=== PATIENT | female | born 2000 | race Caucasian/White ===

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

== ENCOUNTER 2022-05-08 15:13 | Emergency (ER) | payer OTHER ==
[~2022-05-08] VITALS: Ht 157.5 cm; Wt 61.2 kg
[~2022-05-08 15:13] MED LIST changes: +MAG-27 PO
--- NOTE | 2022-05-08 15:36 | NUR ---
COVID, FLU, STREP SWABS DONE.
[2022-05-08 15:37] VITALS: BP 110/64
[2022-05-08] MEDS ORDERED: IBUP-1842 PO (17:32)
[2022-05-08] MEDS ORDERED: PHEN177S23 PO (17:32)
[2022-05-08] MEDS ORDERED: BPM/118S31 PO (17:32)
--- NOTE | 2022-05-08 17:35 | NUR ---
Patient discharged with v/s stable. Written and verbal after care instructions given. Patient alert, oriented and verbalized understanding of instructions. Ambulatory with steady gait. All questions addressed prior to discharge. ID band removed. Patient advised to follow up with PMD. Rx of Ibuprofen, Bromfed and Chloraseptic given. Opportunity to ask questions provided and answered. discharged by KENIA Harrington
--- NOTE | 2022-05-08 17:36 | NUR ---
The patient's care was reviewed and supervised by Ngoc Raya, RN, RN.
== END 2022-05-08 17:35 | disposition home or self-care (01) ==
LOC: MED 15:13
DX: J06.9 Acute upper respiratory infection, unspecified (principal); Z20.822 Contact with and (suspected) exposure to COVID-19; Z79.899 Other long term (current) drug therapy; Z79.1 Long term (current) use of non-steroidal anti-inflammatories (NSAID)
CPT/HCPCS: 87081; 99283

== ENCOUNTER 2023-01-04 19:53 | Emergency (ER) | payer OTHER ==
[~2023-01-04] VITALS: Ht 157.5 cm; Wt 68.0 kg
[~2023-01-04 19:53] MED LIST changes: +BROM118S70 PO; +IBUP-1842 PO; +PHEN177S23 PO
[2023-01-04 20:15] VITALS: BP 132/87; PULSE 120; RESP 16; TEMP 98.4; O2SAT 100
[2023-01-04] MEDS ORDERED: NACL 0.9% 1,000 ML IV ONE (20:45)
[2023-01-04] MEDS ORDERED: ALUMINUM HYD/MAG/SIMETHICONE 30 ML UDC PO ONE (20:45)
[2023-01-04] MEDS ORDERED: FAMOTIDINE 20 MG/2 ML VIAL IVP ONE (20:45)
[2023-01-04] MEDS ORDERED: ONDANSETRON 4 MG/2 ML VIAL IVP ONE (20:45)
[2023-01-04 21:05] LABS: BASOPHILS # (AUTO) 0.1 K/uL (0.00-0.22); BASOPHILS % (AUTO) 0.5 % (0.0-2.0); EOSINOPHILS # (AUTO) 0.1 K/uL (0-0.4); EOSINOPHILS % (AUTO) 1.2 % (0.0-4.0); HEMATOCRIT 39.1 % (36-48); HEMOGLOBIN 13.4 g/dL (12.0-16.0); LYMPHOCYTES # (AUTO) 2.8 K/uL (2.5-16.5); LYMPHOCYTES % (AUTO) 23.7 % (20.5-51.1); MEAN CORPUSCULAR HEMOGLOBIN 29 pg (27-31); MEAN CORPUSCULAR HGB CONC 34 g/dL (33-37); MEAN CORPUSCULAR VOLUME 85.2 fL (80-94); MONOCYTES # (AUTO) 0.8 K/uL (0.8-1.0); MONOCYTES % (AUTO) 6.6 % (1.7-9.3); NEUTROPHILS # (AUTO) 7.9 K/uL (1.8-7.7); PLATELET COUNT (AUTO) 327 K/uL (140-450); RED BLOOD CELL COUNT(AUTO) 4.59 MIL/uL (4.20-5.40); RED CELL DISTRIBUTION WIDTH 12.8 % (11.6-13.7); WHITE BLOOD COUNT (AUTO) 11.7 K/uL (4.5-11.0)
[2023-01-04 21:18] LABS: APPEARANCE,URINE CLEAR (CLEAR); BILIRUBIN,URINE NEGATIVE (NEGATIVE); BLOOD, URINE NEGATIVE (NEGATIVE); COLOR,URINE YELLOW (YELLOW); LEUKOCYTE ESTERASE ,URINE 1+ (NEGATIVE); NITRITE, URINE NEGATIVE (NEGATIVE); PROTEIN,URINE NEGATIVE (NEGATIVE); UGLUCOSE NEGATIVE (NEGATIVE); UROBILINOGEN,URINE 0.2 EU/dL (0.2 - 1)
[2023-01-04 21:28] LABS: BACTERIA,URINE FEW /HPF (None Seen); RBC,URINE 0-5 /HPF (0-5); SQUAMOUS EPITHELIAL CELL,UR 4-10 (MOD) /LPF (0-3 (FEW))
[2023-01-04 21:29] LABS: ALBUMIN 3.9 g/dL (3.4-5.0); ANION GAP 11.4 (8-16); CALCIUM 8.5 mg/dL (8.5-10.1); CARBON DIOXIDE 27.1 mmol/L (21-32); CREATININE 0.8 mg/dL (0.6-1.3); POTASSIUM 3.5 mmol/L (3.5-5.1); TOTAL BILIRUBIN 0.4 mg/dL (0.0-1.0); TOTAL PROTEIN, SERUM 7.6 g/dL (6.4-8.2)
[2023-01-04] MEDS ORDERED: CEPH-588 PO (21:54)
[2023-01-04] MEDS ORDERED: FAMO-92 PO (21:54)
[2023-01-04 22:00] VITALS: BP 132/87; PULSE 120; RESP 16; TEMP 98.4; O2SAT 100
== END 2023-01-04 22:00 | disposition home or self-care (01) ==
LOC: MED 19:53
DX: N39.0 Urinary tract infection, site not specified (principal); K21.9 Gastro-esophageal reflux disease without esophagitis; Z79.899 Other long term (current) drug therapy
CPT/HCPCS: 36415; 80053; 81001; 81025; 83605; 83690; 85025; 87086; 96361; 96374; 96375; 99284; J2405; J3490; J7030

== ENCOUNTER 2023-01-21 20:43 | Emergency (ER) | payer OTHER ==
[~2023-01-21] VITALS: Ht 157.5 cm; Wt 63.5 kg
[~2023-01-21 20:43] MED LIST changes: +CEPH-588 PO
[2023-01-21 21:05] VITALS: BP 147/79; PULSE 100; RESP 19; TEMP 98.1; O2SAT 100
[2023-01-21 21:38] LABS: APPEARANCE,URINE CLEAR (CLEAR); BILIRUBIN,URINE NEGATIVE (NEGATIVE); BLOOD, URINE TRACE-I (NEGATIVE); COLOR,URINE YELLOW (YELLOW); LEUKOCYTE ESTERASE ,URINE NEGATIVE (NEGATIVE); NITRITE, URINE NEGATIVE (NEGATIVE); PH,URINE 6.5 (5.0-9.0); PROTEIN,URINE NEGATIVE (NEGATIVE); UGLUCOSE NEGATIVE (NEGATIVE); UROBILINOGEN,URINE 0.2 EU/dL (0.2 - 1)
[2023-01-21 21:45] LABS: BACTERIA,URINE None Seen /HPF (None Seen); MUCUS,URINE 1+ /LPF (None Seen); RBC,URINE 0 /HPF (0-5); SQUAMOUS EPITHELIAL CELL,UR 4-10 (MOD) /LPF (0-3 (FEW)); TRICHOMONAS,URINE None Seen /HPF (None Seen); WBC,URINE 0 /HPF (0-5); YEAST,URINE None Seen /HPF (None Seen)
[2023-01-21 21:54] LABS: BASOPHILS % (AUTO) 0.2 % (0.0-2.0); EOSINOPHILS # (AUTO) 0.1 K/uL (0-0.4); EOSINOPHILS % (AUTO) 1.3 % (0.0-4.0); HEMATOCRIT 36.8 % (36-48); HEMOGLOBIN 12.8 g/dL (12.0-16.0); LYMPHOCYTES # (AUTO) 2.5 K/uL (2.5-16.5); LYMPHOCYTES % (AUTO) 23.2 % (20.5-51.1); MEAN CORPUSCULAR HEMOGLOBIN 30 pg (27-31); MEAN CORPUSCULAR HGB CONC 35 g/dL (33-37); MEAN CORPUSCULAR VOLUME 85.9 fL (80-94); MONOCYTES # (AUTO) 0.7 K/uL (0.8-1.0); MONOCYTES % (AUTO) 6.3 % (1.7-9.3); NEUTROPHILS # (AUTO) 7.3 K/uL (1.8-7.7); PLATELET COUNT (AUTO) 281 K/uL (140-450); RED BLOOD CELL COUNT(AUTO) 4.29 MIL/uL (4.20-5.40); RED CELL DISTRIBUTION WIDTH 12.7 % (11.6-13.7); WHITE BLOOD COUNT (AUTO) 10.6 K/uL (4.5-11.0)
[2023-01-21 22:07] LABS: ALBUMIN 3.5 g/dL (3.4-5.0); ANION GAP 12.9 (8-16); CALCIUM 8.3 mg/dL (8.5-10.1); CARBON DIOXIDE 24.7 mmol/L (21-32); CREATININE 0.7 mg/dL (0.6-1.3); POTASSIUM 3.6 mmol/L (3.5-5.1); TOTAL BILIRUBIN 0.3 mg/dL (0.0-1.0); TOTAL PROTEIN, SERUM 7.1 g/dL (6.4-8.2)
[2023-01-21 22:53] VITALS: BP 121/82; PULSE 99; RESP 14; O2SAT 98
== END 2023-01-22 00:34 | disposition home or self-care (01) ==
LOC: MED 20:43
DX: O46.91 Antepartum hemorrhage, unspecified, first trimester (principal); Z3A.01 Less than 8 weeks gestation of pregnancy
CPT/HCPCS: 36415; 76817; 80053; 81001; 81025; 83690; 84702; 85025; 86901; 99284; Q0092

== ENCOUNTER 2023-08-19 15:25 | Observation (INO) | payer OTHER ==
[~2023-08-19] VITALS: Ht 157.5 cm; Wt 73.5 kg
[2023-08-19] MEDS: cefTRIAXone 1,000 MG in LIDOCAINE MPF 1% 2.1 ML IM ONE (16:20)
[2023-08-19] MEDS ORDERED: ceFAZolin 1,000 MG VIAL ONE (17:10)
[2023-08-19] MEDS ORDERED: LIDOCAINE 1% 500 MG/50 ML VIAL ONE (17:12)
[2023-08-19] MEDS ORDERED: cefTRIAXone 1,000 MG VIAL ONE (17:31)
== END 2023-08-19 18:22 | disposition home or self-care (01) ==
LOC: MLD 15:25
PROVIDERS: ADMIT Obstetrics & Gynecology; ATTEND Obstetrics & Gynecology
DX: O26.853 Spotting complicating pregnancy, third trimester (principal); O26.893 Other specified pregnancy related conditions, third trimester; R10.9 Unspecified abdominal pain; R35.0 Frequency of micturition; Z3A.36 36 weeks gestation of pregnancy
CPT/HCPCS: 96372; G0378; J0690; J0696; J2001

== ENCOUNTER 2023-11-21 06:40 | Emergency (ER) | payer OTHER ==
[~2023-11-21] VITALS: Ht 157.5 cm; Wt 69.0 kg
[2023-11-21 06:44] VITALS: BP 115/71; PULSE 62; RESP 18; TEMP 97.7; O2SAT 100
--- NOTE | 2023-11-21 07:05 | NUR ---
23YO F BIB SELF C.O L TOE PAIN X 2 DAYS. PT DENIES TRAUMA. REDNESS AND PAIN UPON PALPITATION NOTED TO L TOE. DENIES ANY OTHER SYMPTOMS. CALL LIGHT WITHIN REACH. SAFETY MEASURES IN PLACE. NKDA NO MED HX
--- NOTE | 2023-11-21 07:07 | NUR ---
Patient discharged with v/s stable. Written and verbal after care instructions given and explained. Patient verbalized understanding. Ambulatory with steady gait. All questions addressed prior to discharge. Advised to follow up with PMD.
== END 2023-11-21 07:07 | disposition home or self-care (01) ==
LOC: MED 06:40
DX: M79.675 Pain in left toe(s) (principal)
CPT/HCPCS: 99282

== ENCOUNTER 2024-01-10 01:30 | Emergency (ER) | payer OTHER ==
[~2024-01-10] VITALS: Ht 157.5 cm; Wt 66.2 kg
[2024-01-10 01:38] VITALS: BP 128/88; PULSE 107; RESP 18; TEMP 98.3; O2SAT 99
[2024-01-10 01:56] LABS: APPEARANCE,URINE CLEAR (CLEAR); BILIRUBIN,URINE NEGATIVE (NEGATIVE); BLOOD, URINE NEGATIVE (NEGATIVE); COLOR,URINE YELLOW (YELLOW); LEUKOCYTE ESTERASE ,URINE NEGATIVE (NEGATIVE); NITRITE, URINE NEGATIVE (NEGATIVE); PROTEIN,URINE TRACE (NEGATIVE); UGLUCOSE NEGATIVE (NEGATIVE); UROBILINOGEN,URINE 0.2 EU/dL (0.2 - 1)
[2024-01-10 02:04] VITALS: BP 128/88; PULSE 107; RESP 18; TEMP 98.3
[2024-01-10] MEDS: NACL 0.9% 1,000 ML IV ONE (02:24)
[2024-01-10] MEDS: PROCHLORPERAZINE 10 MG/2 ML VIAL IVP ONE (02:25)
[2024-01-10 02:26] VITALS: O2SAT 99
[2024-01-10 02:27] LABS: BASOPHILS # (AUTO) 0.1 K/uL (0.00-0.22); BASOPHILS % (AUTO) 0.4 % (0.0-2.0); EOSINOPHILS # (AUTO) 0.1 K/uL (0-0.4); EOSINOPHILS % (AUTO) 0.8 % (0.0-4.0); HEMATOCRIT 35.5 % (36-48); HEMOGLOBIN 11.4 g/dL (12.0-16.0); MEAN CORPUSCULAR HEMOGLOBIN 24 pg (27-31); MEAN CORPUSCULAR HGB CONC 32 g/dL (33-37); MEAN CORPUSCULAR VOLUME 74.2 fL (80-94); MONOCYTES # (AUTO) 0.5 K/uL (0.8-1.0); MONOCYTES % (AUTO) 3.9 % (1.7-9.3); NEUTROPHILS # (AUTO) 10.4 K/uL (1.8-7.7); NEUTROPHILS % (AUTO) 86.9 % (42.2-75.2); PLATELET COUNT (AUTO) 388 K/uL (140-450); RED BLOOD CELL COUNT(AUTO) 4.78 MIL/uL (4.20-5.40); RED CELL DISTRIBUTION WIDTH 18.2 % (11.6-13.7); WHITE BLOOD COUNT (AUTO) 11.9 K/uL (4.8-10.8)
[2024-01-10 02:34] LABS: ANION GAP 15.2 (8-16); CALCIUM 8.6 mg/dL (8.5-10.1); CARBON DIOXIDE 26.4 mmol/L (21-32); CREATININE 0.7 mg/dL (0.6-1.3); POTASSIUM 3.6 mmol/L (3.5-5.1)
[2024-01-10 02:39] LABS: ALBUMIN 3.9 g/dL (3.4-5.0); BILIRUBIN,DIRECT 0.1 mg/dL (0.0-0.3); TOTAL BILIRUBIN 0.5 mg/dL (0.0-1.0); TOTAL PROTEIN, SERUM 8.2 g/dL (6.4-8.2)
[2024-01-10] MEDS ORDERED: METO-485 PO (02:57)
== END 2024-01-10 03:13 | disposition home or self-care (01) ==
LOC: MED 01:30
DX: R11.10 Vomiting, unspecified (principal); R10.13 Epigastric pain; Z79.899 Other long term (current) drug therapy
CPT/HCPCS: 36415; 80048; 80076; 81003; 81025; 83690; 85025; 96374; 99283; J0780; J7030

== ENCOUNTER 2024-01-17 13:21 | Emergency (ER) | payer OTHER ==
[~2024-01-17] VITALS: Ht 157.5 cm; Wt 66.2 kg
[~2024-01-17 13:21] MED LIST changes: -ACET-10509 PO; -BROM118S70 PO; -CEPH-588 PO; -FAMO-90 PO; -FAMO-92 PO; -IBUP-1842 PO; -MAG-27 PO; -MECL-303 PO; +METO-485 PO; -ONDA-188 PO; -PHEN177S23 PO
[2024-01-17 13:28] VITALS: BP 129/79; PULSE 125; RESP 16; TEMP 97.2; O2SAT 96
[2024-01-17] MEDS: ONDANSETRON 4 MG ODT PO ONE (14:51)
[2024-01-17 15:10] LABS: BASOPHILS % (AUTO) 0.3 % (0.0-2.0); EOSINOPHILS # (AUTO) 0.1 K/uL (0-0.4); EOSINOPHILS % (AUTO) 0.8 % (0.0-4.0); HEMATOCRIT 38.2 % (36-48); HEMOGLOBIN 12.2 g/dL (12.0-16.0); LYMPHOCYTES # (AUTO) 0.9 K/uL (2.5-16.5); LYMPHOCYTES % (AUTO) 8.6 % (20.5-51.1); MEAN CORPUSCULAR HEMOGLOBIN 24 pg (27-31); MEAN CORPUSCULAR HGB CONC 32 g/dL (33-37); MEAN CORPUSCULAR VOLUME 74.9 fL (80-94); MONOCYTES # (AUTO) 0.5 K/uL (0.8-1.0); MONOCYTES % (AUTO) 4.8 % (1.7-9.3); NEUTROPHILS # (AUTO) 8.8 K/uL (1.8-7.7); NEUTROPHILS % (AUTO) 85.5 % (42.2-75.2); PLATELET COUNT (AUTO) 421 K/uL (140-450); RED BLOOD CELL COUNT(AUTO) 5.11 MIL/uL (4.20-5.40); RED CELL DISTRIBUTION WIDTH 17.9 % (11.6-13.7); WHITE BLOOD COUNT (AUTO) 10.2 K/uL (4.8-10.8)
[2024-01-17 15:12] LABS: APPEARANCE,URINE CLEAR (CLEAR); BILIRUBIN,URINE NEGATIVE (NEGATIVE); BLOOD, URINE NEGATIVE (NEGATIVE); COLOR,URINE YELLOW (YELLOW); LEUKOCYTE ESTERASE ,URINE NEGATIVE (NEGATIVE); NITRITE, URINE NEGATIVE (NEGATIVE); PROTEIN,URINE NEGATIVE (NEGATIVE); UGLUCOSE NEGATIVE (NEGATIVE); UROBILINOGEN,URINE 0.2 EU/dL (0.2 - 1)
[2024-01-17] MEDS: DICYCLOMINE 10 MG CAP PO ONE (15:16)
[2024-01-17] MEDS: ALUMINUM HYD/MAG/SIMETHICONE 30 ML UDC PO ONE (15:16)
[2024-01-17 15:25] LABS: ANION GAP 12.8 (8-16); CALCIUM 8.8 mg/dL (8.5-10.1); CARBON DIOXIDE 27.8 mmol/L (21-32); CREATININE 0.8 mg/dL (0.6-1.3); POTASSIUM 3.6 mmol/L (3.5-5.1)
[2024-01-17 15:31] LABS: ALBUMIN 3.9 g/dL (3.4-5.0); BILIRUBIN,DIRECT 0.1 mg/dL (0.0-0.3); TOTAL BILIRUBIN 0.5 mg/dL (0.0-1.0); TOTAL PROTEIN, SERUM 8.1 g/dL (6.4-8.2)
[2024-01-17] MEDS ORDERED: OMEP20TC22 PO (15:47)
[2024-01-17] MEDS: NACL 0.9% 1,000 ML IV ONE (16:34)
[2024-01-17] MEDS: ACETAMINOPHEN EXTRA STRENGTH 500 MG TAB PO ONE (16:48)
[2024-01-17 17:34] VITALS: BP 126/84; PULSE 104; RESP 18; TEMP 98.7; O2SAT 98
== END 2024-01-17 17:34 | disposition home or self-care (01) ==
LOC: MED 13:21
DX: K52.9 Noninfective gastroenteritis and colitis, unspecified (principal); R00.0 Tachycardia, unspecified; K21.9 Gastro-esophageal reflux disease without esophagitis; Z79.899 Other long term (current) drug therapy
CPT/HCPCS: 36415; 80048; 80076; 81003; 81025; 83690; 85025; 93005; 96360; 99284; J7030; Q0162